=== PATIENT | female | born 1960 | race Caucasian/White ===

== ENCOUNTER 2017-06-10 18:00 | Emergency (ER) | payer BC, OTHER ==
[~2017-06-10] VITALS: Ht 162.6 cm; Wt 90.0 kg
[~2017-06-10 18:00] MED LIST: PROZAC; TRIAMTERENE
[2017-06-10 18:07] VITALS: Ht 162.6 cm; Wt 90.0 kg
[2017-06-10] MEDS ORDERED: ONDANSETRON (ODT) 4 MG TAB ODT STA (19:20)
[2017-06-10] MEDS ORDERED: ONDA4TAB14 PO (19:22)
[2017-06-10] MEDS ORDERED: OSLT75C PO (19:22)
[2017-06-10] MEDS ORDERED: IBUP-1542 PO (19:22)
--- NOTE | 2017-06-10 19:29 | ERD ---
ER Documentation Chief Complaint Chief Complaint FLU SINC THURSDAY,COUGH , FEVER, NAUSEA HPI Patient is a 56-year-old female with hypertension who presents saying "I caught the flu". She said that her symptoms started last . She had chest congestion and lung pain. She was vomiting. She has had decreased intake by mouth because of the vomiting. She had fevers as well. She tried Motrin at home. She has not gotten the flu shot this year. Upon review of old medical records this is the patient's third visit to the ER since 2006. Her primary doctor is Dr. Roldan. ROS All systems reviewed and are negative except as per history of present illness. Medications Home Meds Active Scripts Ondansetron (Ondansetron Odt) 4 Mg Tab.rapdis, 4 MG PO Q6H Y for NAUSEA AND/OR VOMITING, #10 TAB Prov:JOLIE ARCEO MD 06/10/17 Oseltamivir Phosphate* (Tamiflu*) 75 Mg Capsule, 75 MG PO BID for 5 Days, CAP Prov:JOLIE ARCEO MD 06/10/17 Ibuprofen* (Motrin*) 600 Mg Tab, 600 MG PO Q6H Y for PAIN AND OR ELEVATED TEMP, #30 TAB Prov:JOLIE ARCEO MD 06/10/17 Reported Medications Prozac 08/14/10 Triamterene 08/14/10 Allergies Allergies: Coded Allergies: Acetaminophen (Verified Allergy, Mild, 08/14/10) Propoxyphene (Verified Allergy, Mild, 08/14/10) PMhx/Soc History of Surgery: Yes (KNEE, ANKLE, GASTRIC BYPASS, BREAST) Anesthesia Reaction: No Hx Neurological Disorder: No Hx Respiratory Disorders: No Hx Cardiac Disorders: No Hx Psychiatric Problems: No Hx Miscellaneous Medical Probl: Yes (HTN) Hx Alcohol Use: No Hx Substance Use: No Hx Tobacco Use: No FmHx Family History: diabetes Physical Exam Vitals Vital Signs Date Time Temp Pulse Resp B/P Pulse Ox O2 Delivery O2 Flow Rate FiO2 06/10/17 18:07 100.9 110 24 167/89 99 Physical Exam Const: Mild distress secondary to shortness of breath Head: Atraumatic Eyes: Normal Conjunctiva ENT: Normal External Ears, Nose and Mouth. Neck: Full range of motion..~ No meningismus. Resp: Clear to auscultation bilaterally, no retractions or accessory muscle use Cardio: Tachycardic rate without murmur Abd: Soft, non tender, non distended. Normal bowel sounds Skin: No petechiae or rashes Back: No midline or flank tenderness Ext: No cyanosis, or edema Neur: Awake and alert Psych: Normal Mood and Affect Results 24 hrs Current Medications Medications (Trade) Dose Ordered Sig/Sweta Route PRN Reason Start Time Stop Time Status Last Admin Dose Admin Oseltamivir Phosphate (Tamiflu) 75 mg ONCE ONCE PO 06/10/17 19:30 06/10/17 19:31 Ondansetron HCl (Zofran Odt) 4 mg ONCE STAT ODT 06/10/17 19:20 06/10/17 19:21 DC Ibuprofen (Motrin) 800 mg ONCE ONCE PO 06/10/17 19:30 06/10/17 19:31 Procedures/MDM Patient is a 56-year-old female who presents with what appears to be a viral illness. We are in the beginning of flu season and the symptoms do seem related to influenza. She did not get a flu shot this year. Her lungs are clear and I doubt pneumonia or pneumothorax. I doubt serious bacterial infection at this time. The patient did have a mild fever and was given ibuprofen for fever. She was given Tamiflu and Zofran for symptomatically relief as well. The patient will be discharged with prescription for ibuprofen , Zofran, and Tamiflu. She will need to follow-up with her primary doctor within 24-48 hours for reevaluation. She can return for any worsening symptoms. I do not believe she requires further workup or admission to the hospital at this time. Departure Diagnosis: Primary Impression: Upper respiratory infection URI type: unspecified viral URI Qualified Code: J06.9 - Viral upper respiratory tract infection Additional Impression: Influenza Condition: Fair Patient Instructions: Influenza (Adult), Uri, Viral, No Abx (Adult) Referrals: LOUISE RUIZ (PCP) Additional Instructions: Call your primary care doctor TOMORROW for an appointment during the next 1-2 days.See the doctor sooner or return here if your condition worsens before your appointment time. JOLIE ARCEO MD Jun 10, 2017 19:29
[2017-06-10] MEDS ORDERED: IBUPROFEN 800 MG TAB PO ONE (19:30)
[2017-06-10] MEDS ORDERED: OSELTAMIVIR 75 MG CAP PO ONE (19:30)
[2017-06-10 20:18] VITALS: BP 133/82; PULSE 100; RESP 18; TEMP 99.2
== END 2017-06-10 19:45 | disposition home or self-care (01) ==
LOC: FTE 18:00
DX: J11.1 Influenza due to unidentified influenza virus with other respiratory manifestations (principal); I10 Essential (primary) hypertension
CPT/HCPCS: 99284

== ENCOUNTER 2018-12-30 07:48 | Day surgery (SDC) | payer BC ==
[2018-12-27 10:40] VITALS: BMI 46.5
[~2018-12-30] VITALS: Ht 157.5 cm; Wt 113.4 kg
[2018-12-30] VITALS (15 sets, daily range): BP systolic 77–163; BP diastolic 56–74; PULSE 66–84; RESP 9–27; Ht 157.5 cm; Wt 113.4 kg
--- NOTE | 2018-12-30 05:56 | HPN ---
Date/Time of Note Date/Time of Note DATE: 12/30/18 TIME: 05:55 Interval H&P Admission Note Pt. seen H&P reviewed: No system changes BANDAR CHAMPAGNE MD Dec 30, 2018 05:56
--- NOTE | 2018-12-30 05:59 | OPR ---
Date/Time of Note Date/Time of Note DATE: 12/30/18 TIME: 05:56 Operative Report Procedure Date: Dec 30, 2018 Preoperative Diagnosis Left shoulder rotator cuff tear with calcific tendinitis Postoperative Diagnosis 1. Left shoulder rotator massive rotator cuff tear 2. Left shoulder acromioclavicular joint arthritis 3. Left shoulder impingement 4. Labral tearing left shoulder with partial biceps tendon tear Operation/Procedure Performed 1. Left shoulder arthroscopic extensive debridement of the glenohumeral joint 2. Left shoulder arthroscopic distal clavicle excision 3. 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 In my opinion, the assistance offered by a surgical resident is insufficient and Dr. Vo should be compensated for his time. PROCEDURE IN DETAIL: Following the administration of general anesthesia supplemented with a peripheral nerve block for postoperative pain control, the patient was examined under anesthesia. Examination of the left shoulder revealed very significant stiffness. Specifically, her forward flexion was 90 degrees, abduction 80 degrees external rotation 45 degrees and internal rotation 10 degrees. A passive manipulation was then undertaken very carefully. The ultimate range of motion was approximately 140 degrees of forward flexion 110 degrees of abduction 80 degrees and internal rotation of 20 degrees. See letter several significant adhesions were noted to be released. The patient was then placed in the right lateral decubitus position. Sterile prep and drape was then undertaken of the left shoulder. Anterior and posterior glenohumeral portals were established. Glenohumeral arthroscopy revealed that the humeral and glenoid articular cartilage revealed diffuse grade 3 changes throughout both the humeral and glenoid surfaces. The biceps tendon was nearly torn with significant fraying and severe synovitis. The subscapularis had a partial superior tear. The supraspinatus and infraspinatus were torn and retracted. There were significant calcific areas on the edges of the tendon consistent with a chronic tear. The shaver was then introduced as well as the ablator. The biceps tendon was released and an extensive debridement of the glenohumeral joint was then undertaken. All of the cuff frayed edges were then debrided down to stable tissue. Following this, the subacromial space was then entered. The very very large tear was noted with retraction beyond the glenoid and a tear that extended from anterior to posterior encompassing both the infraspinatus and supraspinatus. An extensive debridement of this area was undertaken down to stable tissue. An attempted mobilization of the area revealed that there was no tissue to repair. There was a thickened coracoacromial ligament, with a 5 to 7 mm acromial prominence noted, which extended medially as well into the acromioclavicular joint. The anterior acromion was then cleared of soft tissue and the coracoacromial ligament released. The acromion was then resected approximately 5 to 7 mm down to a flat surface, including a very significant medial prominence along the acromioclavicular joint. The subacromial space was then further evaluated medially. The acromioclavicular joint was then skeletonized and a significant inferior osteophyte was noted. The AC joint capsule was then opened and the distal clavicle was skeletonized for a distance of 10 mm. The dimple was then inserted and 10 mm of the distal clavicle were then excised. The joint and subacromial space were then thoroughly irrigated bony debris removed, the deep tissues were approximated using 4-0 Monocryl, followed by a sterile dressing. A sling was then applied. The patient was awakened and transported to the recovery room in stable condition. BANDAR CHAMPAGNE MD Dec 30, 2018 05:59
[~2018-12-30 07:48] MED LIST changes: +BUPIVACAINE 0.5% (SDV) 30 ML, morphine SULFATE (PF) 8 MG, EPINEPHrine 0.3 MG, KETOROLAC... IRR SCH; +CEFAZOLIN 2 GM/50 ML (PMX) 50 ML IVPB SCH; +DEXAMETHASONE 2 MG TAB PO SCH; +GABAPENTIN 300 MG CAP PO SCH; +IBUP-1542 PO; +LACTATED RINGER'S 1,000 ML (ENTER RATE) IV ONE; +ONDA4TAB14 PO; +OSEL75CA23 PO; +TRANEXAMIC ACID 1GM/100ML(PMX) 100 ML IVPB SCH
[2018-12-30] MEDS ORDERED: FLUO10CA26 PO (08:49)
[2018-12-30] MEDS ORDERED: LOSA25TA12 PO (08:49)
[2018-12-30] MEDS ORDERED: ACYC400T2 PO (08:50)
[2018-12-30] MEDS ORDERED: MAXZ25 PO (08:53)
--- NOTE | 2018-12-30 09:52 | PREAC ---
Date/Time of Note Date/Time of Note DATE: 12/30/18 TIME: 09:48 Anesthesia Eval and Record Evaluation Time Pre-Procedure Interview DATE: 12/30/18 TIME: 09:48 Age 58 Sex female NPO: 8 hrs Preoperative diagnosis Left Shoulder pain and Rotator cuff Tear Planned procedure Left Shoulder Arthroscopy and RCR and Acromioplasty Past Medical History Past Medical History: Includes Cardio: HTN GI: Obesity Psych: Depression Surgery & Anesthesia Issues No known issue Meds Anticoagulation: No Beta Joce within 24 hr: No Reason Beta Joce not given: Pt. not on B-Joce Reported Medications Triamterene/Hctz* (Maxzide (37.5-25)*) 1 Each Tablet, 1 EACH PO DAILY, #30 TAB 12/30/18 Acyclovir* (Acyclovir*) 400 Mg Tablet, 400 MG PO DAILY, TAB 12/30/18 Losartan Potassium* (Losartan Potassium*) 25 Mg Tablet, 25 MG PO DAILY, TAB 12/30/18 Fluoxetine Hcl* (Prozac*) 10 Mg Capsule, 10 MG PO DAILY, CAP 12/30/18 Discontinued Reported Medications Prozac 3 Triamterene 3 Discontinued Scripts Ondansetron (Ondansetron Odt) 4 Mg Tab.rapdis, 4 MG PO Q6H PRN for NAUSEA AND/OR VOMITING, #10 TAB Prov:JOLIE ARCEO MD 06/10/17 Oseltamivir Phosphate* (Tamiflu*) 75 Mg Capsule, 75 MG PO BID for 5 Days, CAP Prov:JOLIE ARCEO MD 06/10/17 Ibuprofen* (Motrin*) 600 Mg Tab, 600 MG PO Q6H PRN for PAIN AND OR ELEVATED TEMP, #30 TAB Prov:JOLIE ARCEO MD 06/10/17 Current Medications Cefazolin Sodium/ Dextrose 50 ml @ 100 mls/hr PRE-OP IVPB ; Start 12/30/18 at 06:30; Stop 12/30/18 at 16:00 Tranexamic Acid 100 ml @ 200 mls/hr Pre-op IVPB ; Start 12/30/18 at 06:30; Stop 12/30/18 at 16:00 Bupivacaine HCl/ Morphine Sulfate/ Epinephrine/ Ketorolac Tromethamine/ Clonidine/Sodium Chloride/ Vancomycin HCl INTRA-OP IRR ; Start 12/29/18 at 06:30 Gabapentin (Neurontin) 300 mg ONCE PO Last administered on 12/30/18at 09:16; Admin Dose 300 MG; Start 12/30/18 at 06:30; Stop 12/30/18 at 16:00 Dexamethasone (Decadron) 2 mg ONCE PO Last administered on 12/30/18at 09:16; Admin Dose 2 MG; Start 12/30/18 at 06:30; Stop 12/30/18 at 16:00 Meds reviewed: Yes Allergies Coded Allergies: propoxyphene (Verified Allergy, Mild, 12/30/18) Allergies Reviewed: Yes Labs/Studies Labs Reviewed: Reviewed by anesthesiologist test: N/A Studies: ECG (n/a), CXR (n/a) Pre-procedure Exam Last vitals Vital Signs Date Temp Pulse Resp B/P (MAP) Pulse Ox O2 O2 Flow FiO2 Time Delivery Rate 12/30/18 98.9 83 16 131/72 95 Room Air 09:32 (91) Airway: Adequate mouth opening, Adequate thyromental dist Mallampati: Mallampati II Teeth: Normal Lung: Normal Heart: Normal ASA Physical Status ASA physical status: 2 Emergency: None Planned Anesthetic General/MAC: ETT Nerve block: Brachial plexus (left) Planned Pain Management Single shot nerve block, Parenteral pain med Pre-operative Attestations Prior to commencing anesthesia and surgery, the patient was re-evaluated, there was verification of: *The patient's identity *The results of appropriate recent lab work and preoperative vital signs *The above evaluation not changing prior to induction *Anesthetic plan, risk benefits, alternative and complications discussed with patient/family; questions answered; patient/family understands, accepts and wishes to proceed. ANDREZ MITCHELL MD Dec 30, 2018 09:52
[2018-12-30] MEDS ORDERED: LIDOCAINE 4% CR TOP ONE (10:00)
[2018-12-30] MEDS ORDERED: PROPOFOL 20 ML ONE (10:23)
[2018-12-30] MEDS ORDERED: FENTAnyl 50 MCG/ML VIAL ONE ×2 (10:23→11:58)
[2018-12-30] MEDS ORDERED: MIDAZOLAM 1 MG/ML 2 ML INJ ONE (10:23)
[2018-12-30] MEDS ORDERED: ROCURONIUM 50 MG INJ ONE (10:23)
[2018-12-30] MEDS ORDERED: ROPIVACAINE 0.5 % 30 ML VIAL ONE (10:24)
--- NOTE | 2018-12-30 10:48 | PAC ---
Date/Time of Note Date/Time of Note DATE: 12/30/18 TIME: 10:47 Post-Anesthesia Notes Post-Anesthesia Note Last documented vital signs Vital Signs Date Temp Pulse Resp B/P (MAP) Pulse Ox O2 O2 Flow FiO2 Time Delivery Rate 12/30/18 98.9 83 16 131/72 95 Room Air 10:42 (91) Activity: WNL Respiratory function: WNL Cardiovascular function: WNL Mental status: Baseline Pain reasonably controlled: Yes Hydration appropriate: Yes Nausea/Vomiting absent: Yes ANDREZ MITCHELL MD Dec 30, 2018 10:48
[2018-12-30] MEDS ORDERED: hydrALAzine 20 MG INJ ONE (11:58)
[2018-12-30] MEDS ORDERED: LABETALOL HCL 20MG INJ ONE (11:58)
[2018-12-30] MEDS ORDERED: DEXAMETHASONE 4 MG/ML 5 ML INJ ONE (12:41)
[2018-12-30] MEDS ORDERED: ONDANSETRON 4 MG INJ ONE (12:41)
[2018-12-30] MEDS ORDERED: METOCLOPRAMIDE 10 MG INJ ONE (12:41)
[2018-12-30] MEDS ORDERED: KETOROLAC 30 MG INJ ONE (12:43)
[2018-12-30] MEDS ORDERED: SUGAMMADEX SODIUM 200 MG/2 ML VIAL IV ONE (12:43)
--- NOTE | 2018-12-30 12:52 | PDOCDIS ---
Discharge Instructions DIAGNOSIS Discharge Diagnosis Rotator cuff tear with impingement CONDITION [id number] Patient Condition: [id number] Good HOME CARE INSTRUCTIONS: [id number] Diet Instructions: [id number] Regular ACTIVITY: [id number] Activity Restrictions: [id number] Slowly Increase Activity Keep Limb Elevated [id number] Bathing Restrictions: [id number] Shower (May shower today as long his wound is not underwater) FOLLOW UP/APPOINTMENTS Follow-up Plan 2 weeks in the office SCHOOL/WORK RELEASE May return to School/Work with: With Restrictions School/Work Release Comment: Sling as necessary. BANDAR CHAMPAGNE MD Dec 30, 2018 12:51
--- NOTE | 2018-12-30 13:09 | PAC ---
Date/Time of Note Date/Time of Note DATE: 12/30/18 TIME: 13:09 Post-Anesthesia Notes Post-Anesthesia Note Last documented vital signs Vital Signs Date Temp Pulse Resp B/P (MAP) Pulse Ox O2 O2 Flow FiO2 Time Delivery Rate 12/30/18 98.9 83 16 131/72 95 Room Air 13:06 (91) Activity: WNL Respiratory function: WNL Cardiovascular function: WNL Mental status: Baseline Pain reasonably controlled: Yes Hydration appropriate: Yes Nausea/Vomiting absent: Yes ADNREZ MITCHELL MD Dec 30, 2018 13:09
[2018-12-30] MEDS ORDERED: DESFLURANE 15 MIN ONE (13:30)
[2018-12-30] MEDS ORDERED: MEPERIDINE 25 MG INJ IV PRN (14:00)
[2018-12-30] MEDS ORDERED: OXYCODONE/ACETAMINOPHEN (5/325) TAB PO PRN ×2 (14:00)
[2018-12-30] MEDS ORDERED: DIPHENHYDRAMINE 50 MG INJ IV PRN (14:00)
[2018-12-30] MEDS ORDERED: HYDROmorphONE 1 MG/5 ML IV SYRINGE IV PRN ×3 (14:00)
[2018-12-30] MEDS ORDERED: hydrALAzine 20 MG INJ IV PRN (14:00)
[2018-12-30] MEDS ORDERED: ONDANSETRON 4 MG INJ IV PRN (14:00)
[2018-12-30] MEDS ORDERED: FENTAnyl 50 MCG/ML VIAL IV PRN ×3 (14:00)
[2018-12-30] MEDS ORDERED: EPHEDrine 25 MG/5 ML SYG IV PRN (14:00)
[2018-12-30] MEDS ORDERED: LABETALOL HCL 20MG INJ IV PRN (14:00)
[2018-12-30] MEDS ORDERED: METOCLOPRAMIDE 10 MG INJ IV PRN (14:00)
== END 2018-12-30 16:05 | disposition home or self-care (01) ==
LOC: SDS 07:48
PROVIDERS: ATTEND Orthopaedic Surgery
DX: M75.102 Unspecified rotator cuff tear or rupture of left shoulder, not specified as traumatic (principal); S46.212D Strain of muscle, fascia and tendon of other parts of biceps, left arm, subsequent encounter; M19.012 Primary osteoarthritis, left shoulder; M25.812 Other specified joint disorders, left shoulder; X58.XXXD Exposure to other specified factors, subsequent encounter; I10 Essential (primary) hypertension
CPT/HCPCS: 29823; 29824; 29826; J0171; J0360; J0690; J0735; J1100; J1885; J2175; J2250; J2274; J2405; J2765; J2795; J3010; J3370